=== PATIENT | female | born 1965 | race Caucasian/White ===

== ENCOUNTER 2019-07-22 07:01 | Day surgery (SDC) | payer OTHER ==
--- NOTE | 2019-07-19 10:46 | HP ---
DATE OF SURGERY: 07/22/2019 ANTICIPATED PROCEDURE: Colonoscopy. HISTORY OF PRESENT ILLNESS: The patient presents for colonoscopy screening. Last colonoscopy six years ago. No symptom. PAST MEDICAL HISTORY: ALLERGIES: NONE. MEDICATIONS: Buspirone hydrochlorothiazide. PAST SURGICAL HISTORY: Appendectomy. Oophorectomy. SOCIAL HISTORY: Negative. FAMILY HISTORY: Negative. PHYSICAL EXAMINATION: VITAL SIGNS: Normal. CHEST: Clear. COR: Regular. ABDOMEN: Satisfactory. PLAN: Colonoscopy.
[2019-07-22] MEDS ORDERED: Lactated Ringers 1,000 ML IV SCH (07:30)
[2019-07-22 07:35] VITALS: O2SAT 100
[2019-07-22] MEDS ORDERED: DIPRIVAN 200 MG/20 ML IV ONE ×2 (09:31→09:55)
[2019-07-22] MEDS ORDERED: GlucaGen 1 MG ONE (09:51)
--- NOTE | 2019-07-22 10:29 | OP ---
SURGERY DATE/TIME: 07/22/2019 0934 PREOPERATIVE DIAGNOSIS: Screening. POSTOPERATIVE DIAGNOSIS: Normal fairly redundant colon. PROCEDURE: Colonoscopy complete to cecum. SURGEON: Nitin Gonzalez M.D. PREP SCORE: Excellent. WITHDRAWAL TIME: Six minutes. ANESTHESIA: MAC. INDICATION: A patient requiring evaluation. DESCRIPTION OF PROCEDURE: Taken to endoscopy. Left lateral decubitus position. Scope introduced. Fairly redundant colon. Some Glucagon was required. Scope advanced to the cecum. Base of cecum, ileocecal valve and appendiceal orifice area normal. Circumferential withdrawal ascending, hepatic, transverse, splenic, descending, sigmoid, rectum, anus was normal. PLAN: Follow up in five years.
[2019-07-22 10:52] VITALS: BP 117/59; PULSE 74
== END 2019-07-22 10:54 | disposition home or self-care (01) ==
LOC: SDC 07:01 → EDSTATUS 17:14
PROVIDERS: ATTEND Surgery
DX: Z12.11 Encounter for screening for malignant neoplasm of colon (principal)
CPT/HCPCS: J1610; J2704